=== PATIENT | female | born 1990 | race Caucasian/White ===

== ENCOUNTER → 2018-07-01 | Outpatient (CLI) | payer OTHER ==
--- NOTE | 2018-07-01 11:39 | RADIOLOGY REPORT (SQ) ---
EXAM DESCRIPTION: FINGER RIGHT COMPLETED DATE/TIME: 07/01/2018 11:22 am REASON FOR STUDY: UNSPECIFIED DISLOCATION OF UNSPECIFIED THUMB, INIT ENCNTR S63.106A UNSPECIFIED DI SLOCATION OF UNSPECIFIED THUMB, INIT COMPARISON: None. NUMBER OF VIEWS: Three views. TECHNIQUE: AP, lateral, and oblique images acquired of the right thumb. LIMITATIONS: None. FINDINGS: MINERALIZATION: Normal. BONES: No acute fracture or dislocation. No worrisome bone lesions. SOFT TISSUES: No soft tissue swelling. No foreign body. OTHER: No other significant finding. IMPRESSION: NO RADIOGRAPHIC EVIDENCE OF ACUTE INJURY. COMMENT: SITE OF TRAUMA/COMPLAINT MARKED/STAMP COMPLETED: YES. TECHNICAL DOCUMENTATION: JOB ID: [id number] [employer]- All Rights Reserved Reading location - IP/workstation name: [email or web address]
== END ==
LOC: RAD 10:59
PROVIDERS: ATTEND Nurse Practitioner Family
DX: S63.106A Unspecified dislocation of unspecified thumb, initial encounter (principal); X58.XXXA Exposure to other specified factors, initial encounter